=== PATIENT | male | born 1975 | race Caucasian/White ===

== ENCOUNTER 2017-03-25 08:16 | Outpatient (CLI) | payer BC ==
--- NOTE | 2017-03-25 09:38 | MRI ---
CERVICAL SPINE MRI WITHOUT IV CONTRAST: History: 41-year-old male with history of cervical pain with right arm numbness and pain and radiculopathy for several months. FINDINGS: Multiplanar, multisequence MR examination of the cervical spine was performed. C2-3, C3-4, C4-5: Unremarkable. C5-6: There is a prominent focal right paracentral/right posterolateral focal protrusion with right f oraminal stenosis and right ventrolateral recess stenosis without rosemary cord compression. C6-7, C7-T1: Unremarkable. No spinal cord mass or spinal cord compression. No abnormal marrow signal. IMPRESSION: Focal right paracentral and posterolateral protrusion at C5-6 with right sided foraminal stenosis and right sided ventral lateral recess narrowing without rosemary cord compression. POS: [facility]
== END 2017-03-25 08:17 | disposition home or self-care (01) ==
LOC: MRI 08:16
PROVIDERS: ATTEND Family Medicine
DX: M50.10 Cervical disc disorder with radiculopathy, unspecified cervical region (principal)
CPT/HCPCS: 72141

== ENCOUNTER 2017-04-30 08:07 | Outpatient (CLI) | payer BC ==
[2017-04-30 09:49] LABS: Mean Corpuscular HGB CONC 33.4 g/dL (32.0-36.0); Mean Corpuscular Volume 86.7 fl (80.0-94.0); Mean Platelet Volume 6.1 fL (7.4-10.4); Platelet Count 305 thou/uL (130-400); RBC Distribution Width 14.2 % (11.5-14.5); Red Blood Cell (RBC) Count 5.18 mill/uL (4.70-6.10); White Blood Cell (WBC) Count 5.5 thou/uL (4.8-10.8)
[2017-04-30 09:58] LABS: PTT 30.2 SEC (22.9-36.1); Prothrombin Time 13.3 SEC (12.0-14.7)
[2017-04-30 10:10] LABS: Anion Gap 10 mmol/L (10-20); BUN (Urea Nitrogen) 12 mg/dL (8.9-20.6); Calc. Creatinine Clearance 0 mL/min (70-130); Calcium 9.6 mg/dL (7.8-10.44); Carbon Dioxide 26 mmol/L (22-29); Chloride 107 mmol/L (98-107); Estimated GFR-MDRD Greater than 90; Glucose 68 mg/dL (70-105); Sodium 139 mmol/L (136-145)
== END 2017-04-30 08:08 | disposition home or self-care (01) ==
LOC: LABBT 08:07
PROVIDERS: ATTEND Surgery
DX: Z01.810 Encounter for preprocedural cardiovascular examination (principal); Z01.812 Encounter for preprocedural laboratory examination; M54.12 Radiculopathy, cervical region; M50.222 Other cervical disc displacement at C5-C6 level
CPT/HCPCS: 80048; 85027; 85610; 85730; 87081; 93005; 93010

== ENCOUNTER 2017-05-06 05:48 | Day surgery (SDC) | payer BC ==
[2017-04-30 08:41] VITALS: BMI 24.3
[2017-05-06] MEDS ORDERED: CEFAZOLIN/Water 2 GM/20 ML SYRINGE ONE (06:06)
[2017-05-06] MEDS ORDERED: Sodium Chloride 0.9% 10 ML ONE (06:32)
[2017-05-06] MEDS ORDERED: Thrombin 5000 UNITS/5 ML VIAL ONE (06:32)
[2017-05-06] MEDS ORDERED: Phenylephrine HCL 10 MG/ML VIAL ONE (06:53)
[2017-05-06] MEDS ORDERED: Fentanyl 250 MCG/5 ML VIAL ONE ×2 (07:15→09:06)
[2017-05-06] MEDS ORDERED: Midazolam HCl 2 mg/2 ml Vial ONE ×2 (07:19→10:50)
[2017-05-06] MEDS ORDERED: Promethazine HCl 25 MG/ML VIAL IM PRN ×2 (09:24→10:50)
[2017-05-06] MEDS ORDERED: HYDROmorphone 2 MG/ML VIAL SLOW IVP PRN (09:24)
[2017-05-06] MEDS ORDERED: Meperidine HCl/PF 25 MG/ML VIAL SLOW IVP PRN (09:24)
[2017-05-06] MEDS ORDERED: Morphine Sulfate 2 MG/ML SYRINGE SLOW IVP PRN (09:24)
[2017-05-06] MEDS ORDERED: Ondansetron HCl/PF 4 MG/2 ML Vial IVP PRN ×2 (09:24→10:50)
[2017-05-06] MEDS ORDERED: Promethazine HCl 25 MG/ML VIAL SLOW IVP PRN (09:24)
[2017-05-06] MEDS ORDERED: Metoclopramide HCl 10 MG/2 ML VIAL ONE ×2 (10:05→14:46)
[2017-05-06] MEDS ORDERED: traMADol HCl 50 MG TAB PO PRN (10:50)
[2017-05-06] MEDS ORDERED: Bisacodyl 10 MG SUPP PR PRN (10:50)
[2017-05-06] MEDS ORDERED: Mag-Al 1200 mg/1200 mg/30 ML UDCUP PO PRN (10:50)
[2017-05-06] MEDS ORDERED: Acetaminophen/Codeine 30-300mg Tablet PO PRN (10:50)
[2017-05-06] MEDS ORDERED: Acetaminophen 325 MG TAB PO PRN (10:50)
[2017-05-06] MEDS ORDERED: Milk Of Magnesia 30 ML UDCUP PO PRN (10:50)
[2017-05-06] MEDS ORDERED: Fleet Enema 133 ML BOT PR PRN (10:50)
--- NOTE | 2017-05-06 11:55 | OP ---
DATE OF PROCEDURE: 05/06/2017 OR: OR #11 WOUND TYPE: Type 1 wound. SURGEON: Monster Souza M.D. UNDERWATER WELDER: Quentin Davis PA-C. PREPROCEDURE DIAGNOSES: Right C6 radiculopathy with right C5-C6 disk extrusion with neck and right a rm pain. POSTPROCEDURE DIAGNOSES: Right C6 radiculopathy with right C5-C6 disk extrusion with neck and right arm pain. PROCEDURE: 1. Anterior C5-C6 diskectomy for decompression of spinal cord and nerve root with preparation of the endplates for placement of interbody spacer. 2. Arthrodesis with interbody spacer placement packed with local bone autograft obtained from same i ncision and allograft. 3. Anterior cervical plate and screw fixation, C5-C6. 4. Use of operative microscope for microdissection. PROCEDURE: After informed consent was obtained from the patient, the patient was brought to OR 11. Proper patient pause and identification was carried out. He was then placed under excellent endotrac heal anesthesia and positioned supine on the operating room table with his cervical spine kept in edu tral position. We identified through a right anterior oblique eliza an approach that would allow for us to access the C5-C6 segment. This was drawn out and following proper patient pause and identifica tion, the wound was then opened with a combination of sharp, monopolar and blunt dissection, proceede d lateral to the larynx and pharynx, trachea and esophagus and medial to the right carotid sheath. W e identified the prevertebral layer of deep cervical fascia and the C5-C6 segments retractors were pl aced. Localization film confirmed our area of interest. We then performed distraction at C5-C6. Th e microscope was brought in the field for microdissection. A diskectomy was then performed with mult iple disk fragments being removed from the right C6 neural foramen and assuring freedom of the spinal cord and left C6 neural foramen. The endplates were prepared, an interbody spacer of appropriate di mension packed with local bone autograft obtained from same incision. Allograft was placed at C5-C6, arthrodesis with microscope was then removed and anterior cervical plate and screw fixation C5-C6 th en occurred with final tightening. We were satisfied with our construct both visually and fluoroscop ically. Copious irrigation occurred throughout Hemostasis was maximized throughout as well and the w ound was then closed in anatomic layers over a drain. The patient then emerged from anesthesia.
[2017-05-06] MEDS ORDERED: CEFAZOLIN/Water 2 GM/20 ML SYRINGE SLOW IVP SCH (14:00)
[2017-05-06] MEDS ORDERED: Propofol 200 MG/20 ML VIAL ONE (14:46)
[2017-05-06] MEDS ORDERED: Dexamethasone 20 MG/5 ML VIAL ONE (14:46)
[2017-05-06] MEDS ORDERED: Ondansetron HCl/PF 4 MG/2 ML Vial ONE (14:46)
[2017-05-06] MEDS ORDERED: Lidocaine 1% PF 5 ML VIAL ONE (14:46)
[2017-05-06] MEDS ORDERED: Glycopyrrolate 0.2 MG/ML 5 ML SYRINGE ONE (14:46)
[2017-05-06] MEDS: Sodium Chloride 0.9% 1,000 ML IV SCH (15:27)
[2017-05-06] MEDS: tiZANidine HCl 4 MG TAB PO PRN ×2 (15:32→22:13)
[2017-05-06] MEDS ORDERED: Morphine 5 MG/ML SYRINGE SLOW IVP PRN (15:45)
[2017-05-06] MEDS: CEFAZOLIN/Water 2 GM/20 ML SYRINGE SLOW IVP SCH (16:04)
[2017-05-06] MEDS: HYDROcodone/Acetaminophen 7.5/325 mg Tablet PO PRN ×2 (18:07→22:09)
[2017-05-06] MEDS ORDERED: Non-Formulary Item 1 EACH (Tizanidine Hcl [Tizanidine Hcl] 4 MG) PO SCH (21:00)
[2017-05-07] MEDS: CEFAZOLIN/Water 2 GM/20 ML SYRINGE SLOW IVP SCH ×2 (00:29→08:48)
[2017-05-07] MEDS: HYDROcodone/Acetaminophen 7.5/325 mg Tablet PO PRN (02:39)
[2017-05-07 08:09] VITALS: BP 109/80; TEMP 97.7
[2017-05-07] MEDS: Sodium Chloride 0.9% 1,000 ML IV SCH (08:41)
[2017-05-07] MEDS ORDERED: Loratadine 10 MG TAB PO SCH (09:00)
[2017-05-07] MEDS: tiZANidine HCl 4 MG TAB PO PRN (10:47)
--- NOTE | 2017-05-07 11:14 | PRG ---
DATE OF SERVICE: 05/07/2017 Mr. Shore is postoperative day #1, having undergone a C5-C6 ACDF. He states that he does have a sor e throat and some difficulty with swallowing, but is tolerating a clear liquid diet and able to swall ow pills. He states postoperatively he is feeling much better. He does have some continued anterior forearm pain although improvement overall in his pain, as well as resolution of the right thumb numb ness. He has good strength in the bilateral upper extremities with perhaps some improvement in the r ight hand intrinsic weakness that he had preoperatively. He has intact sensation to light touch. Md s drain output was roughly 10 mL since surgery. We will plan to remove his drain and sent him home l ater today. [facility] will fit the patient for a [place] J collar before he discharges f rom the hospital. Ample opportunity was given to the patient and his to discuss their questions and concerns, but he has met criteria and the fact that he is voiding, ambulating, tolerating a diet , and pain is controlled with oral medications. We did discuss again postoperative activity restrict ions and both the patient and his understand to call the office with anything additional prior t o his next followup appointment. Please call with any questions or changes in the patient's neurolog ic status, otherwise, we plan to discharge the patient today.
== END 2017-05-07 11:30 | disposition home or self-care (01) ==
LOC: SDC 05:48 → 3SE 14:15 → SDC 05-07 11:30
PROVIDERS: ATTEND Surgery
PROC: 0RT30ZZ Resection of Cervical Vertebral Disc, Open Approach (ICD-10-PCS; principal; 2017-05-07)
PROC: 0RG1070 Fusion of Cervical Vertebral Joint with Autologous Tissue Substitute, Anterior Approach, Anterior Column, Open Approach (ICD-10-PCS; principal; 2017-05-07)
DX: M50.122 Cervical disc disorder at C5-C6 level with radiculopathy (principal); Z79.891 Long term (current) use of opiate analgesic; Z79.899 Other long term (current) drug therapy
CPT/HCPCS: 76001; J2270; A4216; C1713; C1776; J0131; J1100; J2001; J2250; J2370; J2405; J2704; J2765; J3010; J3490; L0174

== ENCOUNTER 2017-06-18 08:09 | Outpatient (CLI) | payer BC ==
--- NOTE | 2017-06-18 10:09 | RAD ---
CERVICAL SPINE 3 VIEWS: HISTORY: Surgery followup. FINDINGS: There are anterior plate and screws transfixing C5-6 with interbody implant at this level. Vertebral bodies maintain normal height and alignment. There is mild loss of disk space at C4-5 and slight po sterior listhesis at C4-5. The other disk spaces are normally maintained. No other abnormality. IMPRESSION: 1. Postoperative changes at C5-6. 2. Mild loss of disk space at C4-5. POS: [facility]
== END 2017-06-18 08:10 | disposition home or self-care (01) ==
LOC: TBSIIMAG 08:09
PROVIDERS: ATTEND Surgery
DX: M54.2 Cervicalgia (principal); Z98.1 Arthrodesis status
CPT/HCPCS: 72040